=== PATIENT | female | born 1990 | race Two or more races ===

== ENCOUNTER 2020-02-25 15:00 | Inpatient (IN) | payer OTHER ==
[~2020-02-25] VITALS: Ht 170.2 cm; Wt 3.6 kg
[2020-03-23] MEDS ORDERED: MAGNESIUM200 MG PO (22:27)
[2020-03-23] MEDS ORDERED: PROBIOTIC1 EAC1 PO (22:27)
[2020-03-23] MEDS ORDERED: PRENATAL TABLE1 EAC1 PO (22:29)
[2020-03-23] MEDS ORDERED: VITAMIN C100 MG PO (22:29)
== END 2020-03-27 11:31 | disposition home or self-care (01) | DRG 787 ==
LOC: LDR 03-20 15:00 → OB/GYN 03-24 21:13
PROVIDERS: ADMIT Specialist; ATTEND Specialist
PROC: 4A1HXFZ Monitoring of Products of Conception, Cardiac Rhythm, External Approach (ICD-10-PCS; 2020-03-24)
PROC: 3E0P7VZ Introduction of Hormone into Female Reproductive, Via Natural or Artificial Opening (ICD-10-PCS; 2020-03-24)
PROC: 3E033VJ Introduction of Other Hormone into Peripheral Vein, Percutaneous Approach (ICD-10-PCS; 2020-03-24)
PROC: 10D00Z1 Extraction of Products of Conception, Low, Open Approach (ICD-10-PCS; principal; 2020-03-24 19:15)
DX: O61.0 Failed medical induction of labor (principal); O41.03X0 Oligohydramnios, third trimester, not applicable or unspecified; O48.1 Prolonged pregnancy; O99.824 Streptococcus B carrier state complicating childbirth; Z3A.40 40 weeks gestation of pregnancy; Z37.0 Single live birth